=== PATIENT | female | born 1950 | race Caucasian/White ===

== ENCOUNTER 2018-05-25 17:17 | Observation (INO) | payer MEDICARE, BC ==
--- NOTE | 2018-05-25 17:36 | ED ---
Neurological HPI - HPI Summary HPI Summary: Time seen by provider: 17:25. The patient is a 67 y/o F presenting to [facility] accompanied by with a chief complaint of a possible seizure occurring within the last hour. She states that she began to have a sudden onset headache and see an aura in her eye shaped like a jagged line. When she has headaches, she normally treats them by drinking tea or coffee with a high sugar content. After she drank the tea, she was sitting down and then lost consciousness. Her , who witnessed the event, states that he was talking with a friend who was in the same room, when out of the corner of his eye he saw his 's body become stiff, her eyes began to droop with her head tilted to one side, and then she began shaking and her breathing was raspy. 911 was called, and the patient was put lying down flat on the ground with a pillow under her legs, as instructed. She was unconscious for about five minutes, but she became more relaxed and her breathing returned mostly back to normal before EMS arrived. She states that once she had LOC, the first thing she remembered was being in the ambulance before leaving the house. She also reports that she had been traveling all morning from her home in [place], and she hadn't eaten much today. She does not have diabetes, but her O2Sat% is usually around 92-95%. Nonsmoker. Occasional drinker. - History of Current Complaint Chief Complaint: EDSeizure Stated Complaint: SEIZURE Time Seen by Provider: 05/25/18 17:25 Hx Obtained From: Patient, Family/Packaging Coordinator Onset/Duration: Sudden Onset, Started minutes ago, Still Present Onset Severity: Moderate Current Severity: None Headache Location: Diffuse (Right) Pain Intensity: 0 Pain Scale Used: 0-10 Numeric Character: Responsiveness Episode Lasting: Seconds/Minutes - 5 Number of Episodes: 1 Syncope Context: Witnessed, Loss of Consciousness: Yes, At Rest Syncope Location: All Extremities Seizure Character: Generalized Aggravating: Headaches - with visual aura Alleviating: Nothing - tea with high sugar content Associated Signs and Symptoms: Positive: Decreased Level of Consciousness, Shortness of Breath - Allergy/Home Medications Allergies/Adverse Reactions: Allergies Allergy/AdvReac Type Severity Reaction Status Date / Time cephalexin Allergy Intermediate See Comment Verified 05/25/18 17:24 erythromycin base Allergy Intermediate See Comment Verified 05/25/18 17:24 PMH/Surg Hx/FS Hx/Imm Hx Endocrine/Hematology History: Denies: Hx Diabetes Cardiovascular History: Denies: Hx Hypertension Neurological History: Denies: Hx Seizures - Surgical History Surgery Procedure, Year, and Place: n/a Infectious Disease History: No Infectious Disease History: Denies: Traveled Outside the [place] in Last 30 Days - Family History Known Family History: Negative: Seizure Disorder - Social History Alcohol Use: Occasionally Hx Substance Use: No Substance Use Type: Reports: None Hx Tobacco Use: No Smoking Status (MU): Never Smoked Tobacco Review of Systems ENT: Other - drooping eyes Positive: Other - raspy breathing Neurological: Other - visual aura, LOC, shaking, stiff body Positive: Headache All Other Systems Reviewed And Are Negative: Yes Physical Exam - Summary Physical Exam Summary: Appearance: The patient is well-nourished in no acute distress and in no acute pain. Skin: The skin is warm and dry and skin color reflects adequate perfusion. HEENT: The head is normocephalic and atraumatic. The pupils are equal and reactive. The conjunctivae are clear and without drainage. Nares are patent and without drainage. Mouth reveals moist mucous membranes and the throat is without erythema and exudate. The external ears are intact. The ear canals are patent and without drainage. The tympanic membranes are intact. Neck: The neck is supple with full range of motion and non-tender. There are no carotid bruits. There is no neck vein distension. Respiratory: Chest is non-tender. Lungs are clear to auscultation and breath sounds are symmetrical and equal. Cardiovascular: Heart is regular rate and rhythm. There is no murmur or rub auscultated. There is no peripheral edema and pulses are symmetrical and equal. Abdomen: The abdomen is soft and non-tender. There are normal bowel sounds heard in all four quadrants and there is no organomegaly palpated. Musculoskeletal: There is no back tenderness noted. Extremities are non-tender with full range of motion. There is good capillary refill. There is no peripheral edema or calf tenderness elicited. Neurological: Patient is alert and oriented to person, place and time. The patient has symmetrical motor strength in all four extremities. Cranial nerves are grossly intact. Deep tendon reflexes are symmetrical and equal in all four extremities. Psychiatric: The patient has an appropriate affect and does not exhibit any anxiety or depression. Triage Information Reviewed: Yes Vital Signs On Initial Exam: Initial Vitals Temp Pulse Resp BP Pulse Ox 98.8 F 89 16 124/74 91 05/25/18 17:18 05/25/18 17:18 05/25/18 17:18 05/25/18 17:18 05/25/18 17:18 Vital Signs Reviewed: Yes - [place] Coma Scale Best Eye Response: 4 - Spontaneous Best Motor Response: 6 - Obeys Commands Best Verbal Response: 5 - Oriented Coma Scale Total: 15 Diagnostics - Vital Signs Vital Signs Temp Pulse Resp BP Pulse Ox 05/25/18 17:18 98.8 F 89 16 124/74 91 - Laboratory Result Diagrams: 05/25/18 17:38 05/25/18 17:38 Lab Statement: Any lab studies that have been ordered have been reviewed, and results considered in the medical decision making process. - CT Brain CT CT Interpretation: No Acute Changes - No acute intracranial abnormality. ED physician has reviewed this report. CT Interpretation Completed By: Radiologist - EKG 18:02 Cardiac Rate: NL - 85 BPM EKG Rhythm: Sinus Rhythm EKG Interpretation: Normal sinus rhythm, normal ST, no ectopy, no STEMI. 18:43 Cardiac Rate: NL EKG Rhythm: Sinus Rhythm EKG Interpretation: Normal sinus rhythm, normal ST, no ectopy, no STEMI. NIH Scale - NIH Scale Level of Consciousness: Alert/Keenly Responsive Ask Patient the Month and His/Her Age: Both Correct Ask Pt to Open/Close Eyes and Senior Supply Chain Analyst/Release Non-Paretic Hand: Both Correctly Best Gaze (Only Horizontal Eye Movement): Normal Visual Field Testing: No Visual Loss Facial Paresis-Pt to Smile & Close Eyes or Grimace Symmetry: Normal/Symmetrical Motor Function - Right Arm: No Drift-Holds 10 Seconds Motor Function - Left Arm: No Drift-Holds 10 Seconds Motor Function - Right Leg: No Drift-Holds 10 Seconds Motor Function - Left Leg: No Drift-Holds 10 Seconds Limb Ataxia-Must be out of Proportion to Weakness Present: Absent Sensory (Use Pinprick to Test Arms/Legs/Trunk/Face): Normal Best Language (Describe Picture, Name Items): No Aphasia Dysarthria (Read Several Words): Normal Extinction and Inattention: No Abnormality Total Score: 0 Course/Dx - Course Course Of Treatment: Ms. Downey presented to the emergency department after an episode of seizure or seizure-like activity. It was witnessed by her and he gives a good description of the seizure. She was however not postictal. She was kept on a monitor and worked up for possible seizure versus syncopal episode and began to complain of chest pain while she was here. A repeat EKG was still within normal limits showing no acute ischemic changes. Initial troponins returned at 0. I asked the hospitalist to consult on her with a concern that she may have had a sudden dysrhythmia. - Diagnoses Provider Diagnoses: Syncope and collapse Discharge - Sign-Out/Discharge Documenting (check all that apply): Patient Departure - Discharge Plan Condition: Stable Disposition: ADMITTED TO [facility] Referrals: No Primary Care Phys,NOPCP [Primary Care Provider] - - Billing Disposition and Condition Condition: STABLE Disposition: Admitted to [facility] - Attestation Statements Document Initiated by Sal: Yes Documenting Scribe: Rox Allen Provider For Whom Sal is Documenting (Include Credential): Dr. Bebeto Gandara MD Scribe Attestation: Rox Parks scribed for Dr. Bebeto Gandara MD on 05/25/18 at 2159. Scribe Documentation Reviewed: Yes Provider Attestation: The documentation as recorded by the Rox walters accurately reflects the service I personally performed and the decisions made by me, Dr. Bebeto Gandara MD
[2018-05-25 17:55] LABS: ABS Basophils 0 10^3/ul (0-0.2); ABS Eosinophils 0.1 10^3/ul (0-0.6); ABS Monocytes 0.3 10^3/ul (0-0.8); ABS Neutrophils 3.8 10^3/ul (1.5-7.7); ABS Nucleated RBC 0 10^3/ul; Eosinophil % 1.4 % (0-6); Hematocrit 39 % (35-47); Hemoglobin 13.2 g/dl (12.0-16.0); Mean Corpuscular HGB Conc 34 g/dl (31-36); Mean Corpuscular Hemoglobin 29 pg (27-31); Mean Corpuscular Volume 87 fL (80-97); Mean Platelet Volume 8.1 um3 (7.4-10.4); Nucleated Red Blood Cells % 0; Platelet Count 187 10^3/ul (150-450); Red Blood Count 4.52 10^6/ul (4.00-5.40); Red Cell Distribution Width 13 % (10.5-15); White Blood Count 5.1 10^3/ul (3.5-10.8)
--- NOTE | 2018-05-25 18:04 | RAD ---
EXAM: CT Head Without Intravenous Contrast EXAM DATE/TIME: 05/25/2018 5:58 PM CLINICAL HISTORY: 67 years old, female; Signs and symptoms; Other: Possible seizure TECHNIQUE: Axial computed tomography images of the head/brain without intravenous contrast. All CT scans at this facility use at least one of these dose optimization techniques: automated exposure control; mA and/or kV adjustment per patient size (includes targeted exams where dose is matched to clinical indication); or iterative reconstruction. COMPARISON: No relevant prior studies available. FINDINGS: Brain: Normal. No hemorrhage. No significant white matter disease. No edema. Ventricles: Normal. No ventriculomegaly. Bones/joints: Normal. No acute fracture. Sinuses: Normal as visualized. No acute sinusitis. Mastoid air cells: Normal as visualized. No mastoid effusion. Soft tissues: Normal. IMPRESSION: No acute intracranial abnormality. To contact [facility] with a general question: [facility] - [phone] For direct physician to physician contact: Physician Hotline - [phone] [facility] ([facility] Facility ID #[id number])
[2018-05-25 18:06] LABS: EGFR Non-African American 60.5 (>60)
[2018-05-25 18:08] LABS: INR 0.86 (0.77-1.02)
[2018-05-25 21:36] LABS: Urine Appearance Cloudy; Urine Blood Negative (Negative); Urine Color Yellow; Urine Ketones Negative (Negative); Urine Protein 2+(100 mg/dL) (Negative); Urine Red Blood Cell Trace(0-2/hpf) (Absent); Urine Specific Gravity 1.015 (1.010-1.030); Urine Urobilinogen Negative (Negative); Urine White Blood Cell Trace(0-5/hpf) (Absent)
[2018-05-25] MEDS ORDERED: LORazepam INJ* 2 MG/ML 1 ML VIAL IV PUSH PRN (22:20)
[2018-05-25] MEDS ORDERED: Ondansetron INJ* 2 MG/ML VIAL IV PRN (22:21)
[2018-05-25] MEDS ORDERED: Acetaminophen TAB* 325 MG PO PRN (22:21)
--- NOTE | 2018-05-26 02:03 | HP ---
CC: Dr. Austin Peña, [place], [place], phone number [phone], fax# [phone]; Dr. Diaz Chang HISTORY AND PHYSICAL: DATE OF ADMISSION: 05/25/18 TIME OF EVALUATION: 10 p.m. PRIMARY CARE PROVIDER: Dr. Austin Peña. PLASTIC SHAPER NEUROLOGIST: Dr. Diaz Chang. CHIEF COMPLAINT: "She had a seizure" as per her . HISTORY OF PRESENT ILLNESS: Ms. Downey is a 67-year-old lady with a past medical history of GERD, migraines, depression, who is visiting from [place]. She states she was in her usual state of health this morning and she went with her to have breakfast. She states that her migraines are usually preceded by visual aura that she describes as "fixed" on her right visual field, but then progressed to the left visual field and this is usually followed by headache. If she takes hot tea with lots of sugar, she is usually able to abort the episode. She did have some visual aura as described above on her right eye this morning. She took her tea and the aura resolved. The next thing she remembers after that is waking up in an ambulance. As per the , the patient was sitting when all of a sudden she went rigid on the chair with head turned to the left, gaze deviation to the left and she had tonic-clonic movements. They laid her on the floor and the shaking had subsided, but she was unresponsive and had rhonchorous respirations. 911 was called and by the time EMS got there, the patient appeared to be regaining consciousness. He thinks that the whole episode lasted for 10 minutes. In the emergency room, the patient stated that she is feeling well. She denies headache, nausea, vomiting, chest pain, palpitations, shortness of breath, and besides the aura, she had no other symptoms prior to the seizure episode. There is no prior history of seizure or any other neurological disease that she is aware. PAST MEDICAL HISTORY: 1. Migraines. 2. GERD. 3. Depression. PAST SURGICAL HISTORY: 1. Status post bilateral cataract surgery. 2. Status post knee replacement. MEDICATIONS: 1. Sertraline 100 mg p.o. daily; she has been on the same dose for many years. 2. Pantoprazole 40 mg p.o. daily. ALLERGIES: With CEPHALEXIN and ERYTHROMYCIN, the patient had muscle aches. FAMILY HISTORY: Her father had a history of stroke. She is not aware of any family history of epilepsy. Grandparents had dementia. SOCIAL HISTORY: She denies tobacco use. The patient describes drinking 4 glasses of wine a week. No history of drug use. Surrogate decision maker is her , Bebeto Downey, phone number is [phone]. REVIEW OF SYSTEMS: A 14-point review of systems was performed and all the pertinent negative and positive findings are in the HPI. PHYSICAL EXAMINATION GENERAL: The patient is a pleasant lady, lying in the ED stretcher, not in acute distress. VITAL SIGNS: Temperature 98.8, heart rate is 86, respiratory rate is 16, oxygen saturation is 96% on room air, blood pressure is 120/71. CHEST: Breath sounds present bilaterally with no added sounds. CVS: Normal S1 and S2. Regular rate and rhythm. ABDOMEN: Soft. Bowel sounds are present. EXTREMITIES: No edema. NEURO: She is alert and oriented x3. Able to move all 4 extremities. DIAGNOSTIC STUDIES/LAB DATA: She had a CBC that showed WBC of 5.1, hemoglobin of 13.2, hematocrit of 39, platelets of 187. INR was 0.86, D- dimer is 236. Chemistry showed a sodium 138, potassium 3.4, chloride 105, bicarbonate 28, BUN of 16, creatinine 0.93, glucose of 121, lactic acid 1.6, calcium 8.8, magnesium 2.1. LFTs are normal. TSH 0.74. Troponin was 0.01, followed by 0. Urine showed 2+ protein, 2+ LE with squamous epithelial cells. CT of the brain without contrast showed no acute intracranial abnormality. EKG done 05/25/18, at 18:02 showed normal sinus rhythm, at 85 beats per minute with no ST-T changes. A repeat EKG done at 18:43 showed no changes. ASSESSMENT AND PLAN: Ms. Downey is a 67-year-old lady with a past medical history of gastroesophageal reflux disease, migraine, depression, visiting from [place], who presents to the emergency room after a seizure episode. 1. Seizure. Etiology is unclear at this time. Sertraline can lower the seizure threshold but the patient states that she has been on her current sertraline dose for many years. She does not have any signs of infection at this time and no other prodromes prior to the episode besides her usual aura. She has no neurological deficits. She will be admitted as an observation to the telemetry floor. She will be on seizure precautions. We will check an EEG and an MRI of the brain with and without contrast, seizure protocol in the morning. The patient is not sure if she can have an MRI due to her knee surgery. We may have to obtain records from her surgery in [place] to see if the material is MRI compatible. The episode does not seem to be cardiac in nature. The patient's description is very suggestive of a tonic-clonic seizure. For now, I am going to hold off on her sertraline and she will be seen in consultation by Neurology in the morning. 2. Gastroesophageal reflux disease. We will continue pantoprazole. 3. Proteinuria. The patient's urinalysis show 2+ protein. I am going to check a random creatinine and random protein to try and quantify her 24-hour proteinuria. 3. DVT prophylaxis. The patient has a score of 2 on DVT Prophylaxis Risk Assessment Guide and she will have SCDs. 4. Code status is full. TIME SPENT: Approximately 50 minutes was spent with the patient and , interview, medical records review, physical examination to complete this admission, more than half of this time was spent [id number] with the patient in coordination of care. [id number]/[facility] #: [id number] MTDD
[2018-05-26] MEDS ORDERED: Omeprazole CAP* 20 MG PO SCH (07:30)
[2018-05-26 08:29] VITALS: BP 93/51
[2018-05-26] MEDS ORDERED: Gadoteridol* (CONTRAST) 279.3 MG/ML 10 ML IV ONE (12:12)
--- NOTE | 2018-05-26 12:31 | RAD ---
HISTORY: Seizure COMPARISONS: Head CT dated May 25, 2018 TECHNIQUE: The following sequences were obtained of the head: Sagittal T1-weighted images, axial T2-weighted images, axial FLAIR images, axial susceptibility weighted images, axial T1-weighted images, coronal T1, T2 and FLAIR images through the mesial temporal lobes. Additionally, axial diffusion-weighted images were obtained with calculated apparent diffusion coefficients. Additionally, sagittal and axial T1 weighted images with thin section coronal T1-weighted images through the mesial temporal lobes were obtained after contrast enhancement with a gadolinium-based intravenous contrast agent. FINDINGS: The study is limited by patient motion artifact. HEMORRHAGE/INFARCT: There is no hemorrhage or acute infarct. MASSES/SHIFT: There is no parenchymal mass or shift. EXTRA-AXIAL SPACES/MENINGES: There is a small focus of enhancement along the left posterior frontal lobe measuring 0.6 x 0.6 x 0.2 cm in size best seen on axial image 24 series 12 and sagittal image 21 of series 13 consistent with a small meningioma. SULCI AND VENTRICLES: The sulci and ventricles are normal in size and position for the patient's stated age. CEREBRUM: There are no focal brain parenchymal abnormalities. The mesial temporal lobes are symmetric in size, architecture, and signal intensity. The collateral white matter bundles are symmetric. The mamillary bodies and temporal horns of the lateral ventricles are symmetric in size. There is no appreciable cortical dysplasia or heterotopia. BRAINSTEM: There are no focal parenchymal abnormalities. CEREBELLUM: There are no focal parenchymal abnormalities. The cerebellar tonsils are normal in size and position. SELLA: The sella is normal. PINEAL: The pineal region is clear. CP ANGLE/TEMPORAL BONES: The labyrinthine structures are grossly normal. VESSELS: Normal flow-voids are noted within the visualized vertebral vasculature. DIFFUSION ABNORMALITIES: There are no diffusion abnormalities. PARANASAL SINUSES/MASTOIDS: The paranasal sinuses are clear. ORBITS: The orbits are unremarkable. BONES AND SOFT TISSUE: No bone or soft tissue abnormalities are noted. OTHER: There are no other areas of abnormal enhancement. IMPRESSION: 1. THERE IS A SMALL, 0.6 CM EXTRA-AXIAL ENHANCING LESION ALONG THE LEFT POSTERIOR FRONTAL LOBE CONSISTENT WITH A SMALL MENINGIOMA. THERE IS NO SIGNIFICANT MASS EFFECT UPON THE ADJACENT CORTEX. 2. THE MESIAL TEMPORAL LOBES ARE SYMMETRIC. THERE IS NO APPRECIABLE
--- NOTE | 2018-05-26 14:09 | CONS ---
ADDENDUM NOW INCLUDED ON THIS REPORT CONSULTATION REPORT: DATE OF CONSULT: 05/26/18 REFERRING PROVIDER: Dr. Sam. LOCATION: She is inpatient room 447. REASON FOR CONSULT: Chief complaint: Seizure. HISTORY OF PRESENT ILLNESS: Nydia Downey is a 67-year-old right handed woman who was in her usual state of health yesterday evening with her and her friend when she started to get her typical migrainous visual auras. The only difference was instead of coming in from the side as jagged lines, it was pretty much right in the center of her vision, but more on the right side. She took her customary tea and honey, which is usually an effective abortive agent and the visual aura did go away and she felt fine. Sometime after that she suddenly convulsed. She recalls only that the migraines went away and the next thing she knew she was in the ambulance. According to her , Bebeto, who is present this morning, she was seated visiting with a friend and suddenly she stiffened with both arms flexed up at the elbows and her fist clenched. Her head was turned to the left and her eyes were deviated to the left. She had guttural breathing sounds. Friend called 911 and they eased her to a lying down position. The convulsive activity continued for five to ten minutes by Bebeto's estimation. After that, she was unresponsive for at least another five to ten minutes. By the time, the ambulance airplane pilot supervisor arrived, she was lethargic and able to be guided into a chair and ultimately the stretcher. She was not really speaking or making much sense for at least a total of 20 to 30 minutes. By the time she arrived in the emergency room, she seemed back to normal. She may have bitten her tongue a little bit, as she noted a little speck of blood in her lip. She did not fall and get hurt. There is no prior history of seizures. There is no prior history of stroke, meningitis, encephalitis or developmental delay. There is no family history of epilepsy. There has been no change in her medications in months listed below. She drinks a glass of wine, perhaps a few times per week at most. She did have a concussive head injury falling off a horse when she was a child. She does not remember the details, but she was kept at home and her parents were told to just keep an eye on her. That is the only head trauma. Later on, she recalls an episode where she had right arm numbness and was seen at an emergency room. She was evaluated for possible transient ischemic attack, but ultimately this was felt possibly be a migrainous aura. She thinks that the numbness in her right arm lasted no more than 30 minutes. PAST MEDICAL HISTORY: Notable for: 1. Depression, treated with sertraline. 2. Gastroesophageal reflux treated with omeprazole. There is no change in her doses for months. MEDICATIONS AT HOME: 1. Sertraline 100 mg p.o. daily. 2. Protonix 40 mg p.o. daily. ALLERGIES: She is allergic to CEPHALOSPORINS. FAMILY HISTORY: Notable for father suffering a stroke. There is no family history of seizure disorders. SOCIAL HISTORY: She lives at home with her . She does not smoke. Again , she drinks about four glasses of wine per week. REVIEW OF SYSTEMS: Negative for cardiac disease, diabetes, recent illnesses or infections. Right knee replacement with good results. Bilateral cataract extractions, migraines with aura with very few headaches in recent years. She will typically get an aura may be two or three times a year at this point. Rest of the 14-point review of systems are unremarkable other than what is in the history of present illness and past medical history. PHYSICAL EXAM: She is well nourished and well hydrated. Temperature 98.7 and she has been afebrile throughout her visit so far. Blood pressures were running about 93/50 most recently, heart rates in the 70s and seems regular, respiratory rate is 16 and oxygen saturation is 94% on room air. Heart is in a regular rate and rhythm without murmurs. Lungs are clear to auscultation. Carotid pulses are symmetrical. There are no cervical bruits. There is a tiny bite low on the left anterior tip of her tongue. Head is otherwise atraumatic. Neck is supple. There is a well healed right knee surgical scar. Distal extremities are warm. Neurologic exam, pupils react equally from about 4 mm down to 2.5 symmetrically. Funduscopic exam reveals sharp discs bilaterally. Visual tapia are full to confrontation. Facial musculature is symmetric. Facial sensation to pin and light touch is symmetric. Palate and tongue otherwise appear normal and tongue protrudes in the midline. There is no dysarthria. Strength is intact and hearing is intact as well. Motor exam reveals normal tone and strength proximally and distally in her upper and lower extremities. There is no pronator drift. Finger taps are normal in the hands. Finger to nose maneuver is normal bilaterally. Heel to byrne maneuver is normal bilaterally. Sensory exam to pin and light touch is symmetrical in all four limbs. Reflexes are symmetrical and plantar responses are flexor bilaterally. There is no rest tremor. She is alert and oriented, and an excellent detailed historian. Memory is intact and language is fluent. She has adequate attention, concentration and fund of knowledge. DIAGNOSTIC STUDIES/LAB DATA: Includes a normal CBC on admission. Chemistry profile is normal other than borderline low potassium at 3.4, glucose 121. Prolactin was elevated yesterday at 5:30 p.m. at 29.2. Urinalysis notable for 2 + leukocyte esterase and 2+ protein. There is trace white blood cells. CT of the brain is reviewed. It is a noncontrast study and looks normal to my review. It was interpreted as no acute intracranial abnormality. EKG reveals a normal EKG. IMPRESSION: New onset seizure. With the head turning to the left and eye deviation, it sounds to be focal onset from the right hemisphere. She had prolonged postictal state, so I do not think convulsive syncope is in the differential at this point. She had an EEG earlier today, which I will review. She is just being taken out for an MRI of the brain, which should be very important in terms of sorting out the etiology and enhance prognosis. PLAN/RECOMMENDATIONS: Follow up on the patient after the MR imaging and I will review the EEG and make further recommendations. She will not be able to drive for a minimum of six months from this event regardless of whether the studies reveal a specific etiology. I will discuss anticonvulsive medications with Nydia and Bebeto upon my return after her imaging studies. ADDENDUM: DATE OF CONSULT: 05/26/18 LOCATION: She is an inpatient in room 447. HOSPITALIST: Dr. Bob. CHIEF COMPLAINT: Seizure. INTERVAL HISTORY: Since my visit with Nydia earlier today, she has had no new problems. She had an MRI of the brain, which I reviewed the images of and the report. It is interpreted as showing a very small enhancing lesion in the left posterior frontal lobe measuring approximately 0.6 x 0.6 x 0.2 cm, which enhances with contrast, felt probably to be a small meningioma. I reviewed her EEG earlier today. There are some poorly formed phase reversing spikes in the left anterior to mid temporal region particularly during drowsiness. There are no clear following slow waves and no ictal events. I explained to Nydia and her Bebeto that there are some abnormalities on her scan and EEG, and I think she probably did have an actual convulsion, also given that her prolactin level was elevated. She is traveling back to [place] as soon as they are discharge and so we agreed not to start any anticonvulsant today, but rather have her contact her primary care physician upon her return and get a referral to a local neurologist. I explained that I do think there is some risk of recurrent seizure, but I do not think we necessarily have to start her on an anticonvulsant this very day. I told her she cannot drive until she is cleared by her [place] Department [employer] Veh[employer] and we will need to determine the rules and regulations in [place] regarding when she might be able to return to drive. I will ask medical records to make a copy of her MRI on a disc to take back with her. [id number]/[facility] #: [id number] A- [id number]/[facility] #: [id number] YVETTE
--- NOTE | 2018-05-26 17:33 | CONS ---
NEUROLOGY CONSULTATION: ADDENDUM: DATE OF CONSULT: 05/26/18 LOCATION: She is an inpatient in room 447. HOSPITALIST: Dr. Bob. CHIEF COMPLAINT: Seizure. INTERVAL HISTORY: Since my visit with Nydia earlier today, she has had no new problems. She had an MRI of the brain, which I reviewed the images of and the report. It is interpreted as showing a very small enhancing lesion in the left posterior frontal lobe measuring approximately 0.6 x 0.6 x 0.2 cm, which enhances with contrast, felt probably to be a small meningioma. I reviewed her EEG earlier today. There are some poorly formed phase reversing spikes in the left anterior to mid temporal region particularly during drowsiness. There are no clear following slow waves and no ictal events. I explained to Nydia and her Bebeto that there are some abnormalities on her scan and EEG, and I think she probably did have an actual convulsion, also given that her prolactin level was elevated. She is traveling back to [place] as soon as they are discharge and so we agreed not to start any anticonvulsant today, but rather have her contact her primary care physician upon her return and get a referral to a local neurologist. I explained that I do think there is some risk of recurrent seizure, but I do not think we necessarily have to start her on an anticonvulsant this very day. I told her she cannot drive until she is cleared by her [place] Department of Motor Vehicles and we will need to determine the rules and regulations in [place] regarding when she might be able to return to drive. I will ask medical records to make a copy of her MRI on a disc to take back with her. [id number]/[facility] #: [id number] YVETTE
--- NOTE | 2018-05-27 05:36 | EEG ---
ELECTROENCEPHALOGRAPHY: DATE OF STUDY: 05/26/18 LOCATION: She is an inpatient in room 447. REFERRING PROVIDER: Dr. Sam. CLINICAL PROBLEM: Episode of apparent convulsion, the day or evening before this recording. There is no prior history of seizures. The patient was described as having stiffening and shaking with the left head turning and left gaze deviation. MEDICATIONS: Current medications consist only: 1. Zofran. 2. Prilosec. REPORT: This 16-channel EEG is remarkable for background rhythms consisting of a well-formed alpha rhythm in the posterior derivations and 9 cycles per second , which is symmetric and suppressed by eye opening. Low-voltage bifrontal beta rhythms are noted and are symmetric. Activation procedures are not attempted. Occasionally, small phase-reversing spikes are noted from the left anterior temporal region. There is no following slow wave. These are fairly low amplitude spikes. The patient drowses and falls asleep with vertex slowing and sleep spindles seen symmetrically. Small phase-reversing spikes in the left anterior-to- mid temporal regions are noted during sleep. The patient is awakened at the end of recording with a normal arousal response. There are no clinical events. CLINICAL IMPRESSION: Borderline abnormal EEG due to poorly formed spikes seen from the left mid temporal region, mainly in drowsiness and sleep. These abnormalities are not clearly epileptiform in character and a clinical correlation is advised. [id number]/[facility] #: [id number] [facility] MEDICAL CENTEREdilberto
--- NOTE | 2018-05-27 06:51 | DS ---
DISCHARGE SUMMARY: DATE OF ADMISSION: DATE OF DISCHARGE: 05/26/18 HOSPITAL COURSE: This 67-year-old woman was in her usual state of health until the morning of the da y of admission. She went to breakfast with her . She had the visual aura of a migraine, whic h is not unusual for her; however, the next thing she remembers is waking up in an ambulance. Her hu sband noted she suddenly went rigid in the chair with her head turned to the left, eyes looking to th e left, and started having tonic-clonic movements. She was laid down on the floor, but she was unres ponsive, had rhonchorous respirations. 911 was called. By the time the ambulance crew arrived, the patient was regaining consciousness. The estimates the whole episode lasted for 10 minutes. In the emergency room, the patient stated she felt well and denied really all symptoms other than th e visual aura. There is no prior history of seizure or significant head tremor. Evaluation did reveal an elevated prolactin level. She was evaluated with a CT scan of the brain in the emergency room, which showed no acute abnormality. MRI of the brain showed a 0.6 cm enhancing ex tra-axial mass in the left posterior frontal lobe region, felt to be a meningioma. EEG had some mild abnormalities. I do not have the written report. It is not available at this time , but should be available in a few hours. I discussed the case with Dr. Park. He felt she did no t need to start on an anticonvulsive medication at this time, but should have neurologic follow up. She was instructed not to drive until approved by a doctor. Normally, this should be a 6-month seizu re free period. FINAL DIAGNOSES: 1. Seizures. 2. History of migraines. 3. Gastroesophageal reflux disease. 4. Depression. DISCHARGE MEDICATIONS: 1. Sertraline 100 mg daily. 2. Pantoprazole 40 mg daily. DISCHARGE CONDITION: Good. DISCHARGE DISPOSITION: Home. The patient will leave the day after discharge to return to [place]. Her will do all the driving. [id number]/[facility] #: [id number]
== END 2018-05-26 15:18 | disposition home or self-care (01) ==
LOC: ED 17:17 → MEDTELE 21:56
PROVIDERS: ADMIT Internal Medicine; ATTEND Internal Medicine
DX: R56.9 Unspecified convulsions (principal); K21.9 Gastro-esophageal reflux disease without esophagitis; F32.9 Major depressive disorder, single episode, unspecified; R51 Headache; R55 Syncope and collapse; Z96.659 Presence of unspecified artificial knee joint
CPT/HCPCS: 36415; 70450; 70553; 80053; 81003; 81015; 82570; 83605; 83735; 84146; 84156; 84443; 84484; 85025; 85379; 85610; 87086; 93005; 95819; 96374; 96375; 99284; A9270-GY; A9579